=== PATIENT | female | born 1935 | race Caucasian/White ===

== ENCOUNTER 2020-02-28 18:21 | Emergency (ER) | payer MEDICARE, SELFPAY ==
[2020-02-28 18:29] VITALS: BP 121/86; PULSE 96; RESP 16; TEMP 37.2; O2SAT 94; BMI 20.1
--- NOTE | 2020-02-28 18:30 | ED.EXTPRO ---
HPI - Extremity Problem General Chief complaint: Fall Stated complaint: FALL, HIP PAIN Time Seen by Provider: 02/28/20 18:28 Related Data Allergies Allergy/AdvReac Type Severity Reaction Status Date / Time No Known Allergies Allergy Verified 02/28/20 18:33 [facility] Past Medical History Medical History (Updated 02/28/20 @ 18:32 by Eva Fisher) Asthma FH: total knee replacement High cholesterol HTN (hypertension)
--- NOTE | 2020-02-28 18:43 | ED_ITS ---
HPI - Fall General Chief Complaint: Fall Stated Complaint: FALL, HIP PAIN Time Seen by Provider: 02/28/20 18:28 Source: patient Mode of arrival: EMS Limitations: language barrier History of Present Illness HPI Narrative: Apparently patient was cleaning her house tripped and had a mechanical fall landed on her right hip since then she has been limping and pain is getting worse today no other injuries no head injuries no loss of consciousness no prior fracture of the right hip complaint: fall Onset (ago): day(s) (1) Fall from: standing Fall witnessed: no Place fall occurred: home Loss of consciousness: none Prolonged down time: no Symptoms prior to fall: none Context: tripped/slipped Location of injury - extremities: right: thigh Severity: moderate Quality: dull Associated symptoms (after fall): denies Related Data Previous Rx's Medication Instructions Recorded miscellaneous medical supply #1 ea 02/28/20 tramadol 50 mg PO Q6H PRN #20 tab 02/28/20 Allergies Allergy/AdvReac Type Severity Reaction Status Date / Time No Known Allergies Allergy Verified 02/28/20 18:33 Review of Systems Review of Systems: REVIEW OF SYSTEMS: Pertinent positives and negatives are stated above in the history. GEN: no fevers, chills, fatigue HEENT: no nasal congestion, sore throat, ear pain NEURO: no headache, dizziness, focal weakness PULM: no cough, shortness of breath CV: no chest pain, palpitations, LE edema ABD: no abdominal pain, nausea, vomiting, diarrhea : no dysuria, urgency, frequency SKIN: no rash ROS otherwise negative x 10 PMFSH Past Medical History Medical History Asthma FH: total knee replacement High cholesterol HTN (hypertension) Social History Social History Alcohol intake: never Smoked in Last 30 Days: No Use of substances other than those prescribed or required for medical reasons: No Advance Directives: No Advance Directives Information Provided: Yes Physical Exam Vital Signs: Vital Signs: Last Vital Signs Temp 99.0 F 02/28/20 18:29 Pulse 88 02/28/20 20:34 Resp 15 02/28/20 20:34 BP 110/67 02/28/20 20:34 Pulse Ox 97 02/28/20 20:34 Body Mass Index 20.1 Appearance: Alert. Oriented X3. No acute distress. Eyes: Pupils equal, round and reactive to light. ENT: Pharynx normal. Neck: Normal inspection. Neck supple. CVS: Normal heart rate and rhythm. Pulses normal. Respiratory: No respiratory distress. Breath sounds normal. Abdomen: Soft and nontender. Skin: Skin warm and dry. Normal skin color. Normal skin turgor. Extremities: No lower extremity edema. Good range of movement , no deformity of lower extremity , local tenderness right greater trochanteric area and groin Neuro: Oriented X 3. No motor deficit. No sensory deficit. Course Course Course Narrative: Patient had difficulty in walking with walker because of pain and right hip. Patient does not want to go to rehab she the family support at home has a wheelchair and walker would like to go home will give her pain medications advised to follow-up with orthopedics and report to ER if pain gets worse MDM - Fall MDM Narrative Medical decision making narrative: Patient status post mechanical fall with right hip pain x-ray showed pubic rami fracture patient has a walker at home and wheelchair does not want to go to rehab. Try to ambulate her with walker and pain management Discharge Plan Discharge Clinical Impression: Fracture of pubic ramus Patient Disposition: Home, Self-Care Instructions: Pelvic Fracture (ED) Additional Instructions: Rest use walker for ambulation take pain medication as needed. Follow-up with orthopedics if pain gets worse Prescriptions: New tramadol 50 mg tablet 50 mg PO Q6H PRN (Reason: pain) Qty: 20 RF: 0 (DME) miscellaneous medical supply Misc See Rx Instructions .ROUTE .MEDSUPPLY Qty: 1 RF: 0 Referrals: Pastor Porras MD [Physician] - 10 days Interventions: ED Discharge Assessment Last Done: 02/28/20 20:35 Discharge Date/Time: 02/28/20 20:35 Print Language: Greenlandic
--- NOTE | 2020-02-28 18:43 | XR_ITS ---
EXAMINATION: XR HIP, RIGHT CLINICAL INFORMATION: Status post fall COMPARISON: 07/23/2017 TECHNIQUE: AP view of the pelvis and AP and frog-leg lateral views of the right hip FINDINGS: There are 2 separate nondisplaced fractures of the right superior pubic ramus, one occurring near the symphyseal portion of the pubic body and the other at the high right pubic ramus near the junction with the acetabulum. There is also a nondisplaced fracture of the right inferior pubic ramus near the ischial tuberosity. Right proximal femur is intact. The femoral head is probably situated at the right hip joint. Right hip joint is relatively well-preserved. The right SI joint. Intact. No separate fractures are identified within the pelvis. Left hip joint is unremarkable. There is degenerative spondylosis in the lower lumbar spine. Soft tissues are unremarkable. XR/XR hip RT w PEL1V IMPRESSION: Nondisplaced fractures of the right superior and inferior pubic rami.
[2020-02-28] MEDS: oxyCODONE HCl Immed Release 5 MG TABLET PO (19:20)
[2020-02-28 20:22] VITALS: RESP 12
[2020-02-28] MEDS: Morphine Sulfate 4 MG/ML CARTRIDGE IM (20:22)
[2020-02-28 20:34] VITALS: BP 110/67; PULSE 88; RESP 15; O2SAT 97
--- NOTE | 2020-02-28 20:34 | PC.NURSE ---
Pt ambulates w/ assistance and walker, has walker at home. Pt daughter in law and pt decline rehab/case management.
== END 2020-02-28 20:35 | disposition home or self-care (01) ==
PROVIDERS: Emergency Provider Internal Medicine
DX: S32.501A Unspecified fracture of right pubis, initial encounter for closed fracture (principal); M25.551 Pain in right hip; I10 Essential (primary) hypertension; W01.0XXA Fall on same level from slipping, tripping and stumbling without subsequent striking against object, initial encounter; Y93.01 Activity, walking, marching and hiking; Y92.009 Unspecified place in unspecified non-institutional (private) residence as the place of occurrence of the external cause; Y99.9 Unspecified external cause status; Z79.899 Other long term (current) drug therapy
CPT/HCPCS: 73502; 96372; 99284; J2270

== ENCOUNTER 2020-03-25 10:53 | Outpatient (REF) | payer MEDICARE, SELFPAY ==
--- NOTE | 2020-03-25 10:59 | XR_ITS ---
EXAMINATION: XR PELVIS CLINICAL INFORMATION: Fracture COMPARISON: Previous x-ray February 2013 TECHNIQUE: AP view of the pelvis. FINDINGS: There are right superior and inferior pubic ramus fractures. There are 2 fractures of the superior pubic ramus, one near the pubic symphysis and one near the junction with the acetabulum. There is slight interval increase in displacement compared to February 2020 exam with the fracture fragment displaced inferiorly by 4 mm. there is a comminuted fracture of the inferior pubic ramus. There is increasing periosteal reaction seen adjacent to the inferior pubic ramus fracture. Bones of the pelvis are otherwise normal. Hip joints are normal. There are degenerative changes of the visualized lower lumbar spine. Soft tissues are unremarkable. XR/XR pelvis 1-2V IMPRESSION: Right superior and inferior pubic rami fractures. There is slight increased inferior displacement of the superior pubic ramus fracture and the inferior pubic ramus fracture appears comminuted with some periosteal reaction.
== END 2020-03-25 10:54 | disposition home or self-care (01) ==
LOC: HO.XRAY 10:53
PROVIDERS: PCP Internal Medicine; Visit Provider Physician Assistant
DX: S32.599A Other specified fracture of unspecified pubis, initial encounter for closed fracture (principal)
CPT/HCPCS: 72170; 99202

== ENCOUNTER 2020-06-12 19:19 | Emergency (ER) | payer MEDICARE, SELFPAY ==
--- NOTE | ~2020-06-12 | CT_ITS ---
EXAMINATION: CT ABDOMEN AND PELVIS WITHOUT CONTRAST CLINICAL INFORMATION: Abdominal pain and nausea. COMPARISON: CT abdomen and pelvis 04/27/2011. Lumbar spine films 02/26/2015. TECHNIQUE: Multidetector volumetric imaging was performed from the superior aspect of the liver through the pubic symphysis. Sagittal and coronal reformatted images were obtained on the technologist's workstation. This CT examination was performed using dose optimization techniques as appropriate, variously including the following: *Automated exposure control. *Adjustment of mA and/or kV according to patient size (this includes techniques or standardized protocols for targeted exams where dose is matched to indication/reason for exam; i.e. extremities or head). *Use of iterative reconstruction technique. DLP: 274 mGy-cm FINDINGS: LUNG BASES: The visualized lung bases are unremarkable. LIVER, GALLBLADDER, AND BILIARY TREE: The liver is normal in size, shape, and attenuation. Multiple hepatic cysts appear without significant change when compared to the 2012 study. No worrisome solid focal hepatic lesion or biliary ductal dilatation is present. The gallbladder is unremarkable with no evidence of radiopaque gallstones, gallbladder wall thickening, or obvious pericholecystic inflammatory changes. PANCREAS: Unremarkable. SPLEEN: Unremarkable. ADRENAL GLANDS: Unremarkable. KIDNEYS AND URETERS: The kidneys are normal in size, shape, and attenuation. No hydronephrosis, hydroureter, or calculi seen. No perinephric stranding. BLADDER: Unremarkable. GASTROINTESTINAL TRACT: A new mesentero-axial gastric volvulus is present along with a hiatal hernia which is new since the prior study. A hiatal hernia has been there for many years. There is marked dilatation of the stomach, especially the portion below the hemidiaphragm. The small and large bowel are unremarkable. ABDOMINAL WALL: No significant hernia is appreciated. LYMPH NODES: Normal. VASCULAR: Unremarkable. PELVIC VISCERA: An anteverted uterus is present. A 3.6 x 1.2 x 3.5 cm left ovarian cyst is present. In 2012, this measured 3.0 x 2.9 x 3.2 cm. No free intraperitoneal air is present. OSSEOUS STRUCTURES: Old fractures involving the right acetabulum and the right inferior pubic ramus are present. Old fractures, possibly insufficiency fractures, with sclerosis are present in the sacrum as well. The fractures are new since at least 2011. Marked degenerative changes and scoliosis present in the visualized spine. Grade 1-2 anterolisthesis of L5 upon S1. The degenerative changes and the spondylolisthesis have been present since at least 2014. CT/CT abdomen pelvis wo con IMPRESSION: 1. New mesentero-axial gastric volvulus is present along with a hiatal hernia. There is marked gastric dilatation. 2. Incidental note made of: a. Increased size of left ovarian cyst which has been present since 2011. b. Stable hepatic cysts. c. Pelvic fractures as described above, chronic. d. Severe degenerative changes and scoliosis in the spine. This critical result was discussed with Dr. Yao Allan at 10:20 PM on the day of the exam and it was ascertained that the content and urgency of the report was understood at the time of direct communication.
--- NOTE | ~2020-06-12 | XR_ITS ---
EXAMINATION: XR CHEST CLINICAL INFORMATION: Shortness of breath COMPARISON: 03/27/2019 TECHNIQUE: Frontal view of the chest was obtained. FINDINGS: Again seen is a large hiatal hernia. Otherwise, no significant abnormality is noted involving the heart, lungs, mediastinum, bony thorax or soft tissues. XR/XR chest 1V IMPRESSION: Large hiatal hernia. A cause for the acute shortness of breath is not seen.
[2020-06-12 19:39] VITALS: BP 130/70; PULSE 111; O2SAT 96
[2020-06-12 19:40] VITALS: BP 121/93; PULSE 110; RESP 17; TEMP 37; O2SAT 92; BMI 17.7
[2020-06-12] MEDS: 0.9 % Sodium Chloride 1,000 ML 999 ML IV ×2 (20:25→22:00)
[2020-06-12] MEDS: ondansetron HCL 4 MG/2 ML VIAL IVPUSH ×2 (20:25→21:59)
[2020-06-12 20:28] VITALS: BP 139/86; PULSE 92; RESP 16; O2SAT 98
[2020-06-12 20:30] LABS: MANUAL DIFF FLAG NO
[2020-06-12 20:33] VITALS: O2SAT 90
[2020-06-12 20:41] LABS: Basophils Percent Auto 0.1 % (0-2); Hematocrit 50.1 % (37-47); Hemoglobin 16.1 g/dl (12.0-16.0); Imm Gran Abs Auto 0.07 X10*3/uL (0.00-0.03); Imm Gran Pct Auto 0.5 % (0.0-0.4); Lymphocytes Absolute Auto 1.4 X10*3/uL (1.2-4.9); Lymphocytes Percent Auto 9.5 % (20-40); Mean Corpuscular HGB Conc 32.1 g/dl (31.0-35.0); Mean Corpuscular Hemoglobin 28.5 pg (27.0-33.0); Mean Corpuscular Volume 88.7 fL (80-98); Mean Platelet Volume 10.5 fL (9.4-12.3); Monocytes Absolute Auto 0.8 X10*3/uL (0.1-1.2); Monocytes Percent Auto 5.2 % (2-11); Neutrophils Absolute Auto 12.1 X10*3/uL (2.0-8.3); Neutrophils Percent Auto 84.7 % (45-73); Platelet Count 327 X10*3/uL (160-400); Red Blood Count 5.65 X10*6/uL (4.20-5.50); Red Cell Distribution Width 13.8 % (11.0-16.0); White Blood Count 14.4 X10*3/uL (4.8-10.8)
--- NOTE | 2020-06-12 21:04 | PC.NURSE ---
pt not given 2nd liter as it was only supposed to be 1l ordered.
--- NOTE | 2020-06-12 21:04 | PC.NURSE ---
patient a&o, family at bedside, classroom monitor applied, iv inserted, labs drawn, pt medicated per standing orders, will continue to monitor.
[2020-06-12 21:22] LABS: Albumin Level 5.5 g/dL (3.5-5.0); Alkaline Phosphatase 122 U/L (39-117); Anion Gap 33 (12-20); Bilirubin Direct 0.3 mg/dL (0.0-0.5); Bilirubin Total 0.7 mg/dL (0.0-1.0); Calcium 9.1 mg/dL (8.4-10.2); Carbon Dioxide 36 mmol/L (22-29); Chloride 81 mmol/L (96-108); Creatinine Clr Calc Pharmacy 12.5; Estimated Glomerular Filt Rate 19; Glucose Random 164 mg/dL (60-115); Potassium 3.3 mmol/L (3.3-5.1); Sodium 147 mmol/L (135-145)
[2020-06-12 21:23] LABS: Alanine Aminotransferase 20 U/L (0-31); Aspartate Amino Transferase 29 U/L (5-31); Lipase 97 U/L (8-78)
--- NOTE | 2020-06-12 21:23 | ED_ITS ---
HPI - General Adult General Chief complaint: Nausea/Vomiting/Diarrhea Stated complaint: N/V Time Seen by Provider: 06/12/20 21:07 Source: patient and family (Patient's son, Michael) Mode of arrival: ambulatory Limitations: language barrier (Patient speaks [place]an) History of Present Illness HPI narrative: 84-year-old female who presents emergency department for evaluation of nausea, vomiting and abdominal pain. The information comes from the patient and from the patient's son, Michael. The patient ate a [employer] sandwich Saturday night. Patient states that she felt fine until Saturday morning when she developed diffuse abdominal pain. Saturday evening, she began to vomit and has not been able to hold down any food or fluid for the last 24 hours. She states that she had a normal bowel movement yesterday morning. She states that the pain in her abdomen is a diffuse, constant, pain which is 10/10 at its worst. She cannot characterize the pain. She states that her abdomen feels distended. She states that she is feeling weak and lightheaded. This is 1st episode of this type of pain for this patient. The patient has no COVID-19 symptoms. She states that she got her 2nd vaccination of the COVID-19 vaccine 1 week prior but does not know which vaccination she received. Related Data Previous Rx's Medication Instructions Recorded miscellaneous medical supply #1 ea 02/28/20 tramadol 50 mg PO Q6H PRN #20 tab 02/28/20 Allergies Allergy/AdvReac Type Severity Reaction Status Date / Time No Known Allergies Allergy Verified 02/28/20 18:33 Review of Systems Review of Systems: Yes all other systems are reviewed and are negative [facility] Past Medical History [facility] Narrative: The patient lives alone however her son and [id number] live upstairs apartment. The runs a daycare. She denies tobacco, alcohol and drug use. Medical History (Updated 06/12/20 @ 23:13 by Suhail Martinez MD) Acute gastric volvulus Asthma FH: total knee replacement High cholesterol HTN (hypertension) Social History Social History Alcohol intake: never Smoking Status: Former smoker Use of substances other than those prescribed or required for medical reasons: No Advance Directives: No Advance Directives Information Provided: No Physical Exam Vital Signs: Vital Signs: Last Vital Signs Temp 98.0 F 06/12/20 22:16 Pulse 92 06/12/20 22:16 Resp 16 06/12/20 22:16 BP 143/80 H 06/12/20 22:16 Pulse Ox 96 06/12/20 22:16 Body Mass Index 17.7 Const: General: cooperative and in distress moderate (Secondary to pain) Nutritional Appearance: thin Orientation/consciousness: oriented to person and oriented to place Limitations: no limitations HENMT: Head: Yes normal to inspection, Yes normocephalic and Yes atraumatic Ears: external ears normal General nose exam: Normal external nose present Face and sinus: Yes normal facial exam Mouth: other (Dry mucous membrane) Throat: Yes posterior oropharynx normal Eyes: Periorbital: periorbital findings normal Eyelids: Yes eyelids normal Conjunctivae: conjunctivae normal Sclerae: sclerae normal Corneas: corneas normal Pupils: Equal, round and reactive pupils present Direct Ophthalmoscopy: normal light reflex Neck: Neck: Yes full ROM, Yes no lymphadenopathy, Yes no meningeal signs, Yes trachea midline and Yes supple Chest: Chest palpation & inspection: normal inspection of the chest and normal palpation of entire chest wall Resp: Effort & Inspection: normal respiratory effort and able to speak in co mplete sentences Auscultation: clear to auscultation bilaterally Cardio: Rate: regular rate Rhythm: regular rhythm Heart sounds: S1 normal heart sound present, S2 normal heart sound present and no murmurs GI: Inspection: Yes other (Distended) Palpation (GI): Soft to palpation, Tenderness to palpation present (GI) (Mild diffuse tenderness) in the epigastrum (Moderate), no guarding, not rigid and No hepatosplenomegaly present Auscultation: normal bowel sounds : General: Yes no CVA tenderness Back/Spine/Pelvis: Back: no CVA tenderness Cervical Spine: normal cervical lordosis Thoracic/Lumbar Spine: thoracic and lumbar spine normal to inspect ion Skin: Lesions: no lesions Rashes: no rashes Wounds: no wounds Neuro: General: oriented to person, oriented to place and no meningeal signs Cranial nerves: Yes CN's II-XII intact bilaterally and Yes Equal, round and reactive pupils present Cognition (Neuro): normal cognition Motor exam (neuro): 5/5 motor strength present throughout Extrem: General: Yes normal to inspection and Yes full ROM Psych: Appearance: well kempt Mental Status: mental status grossly normal Speech and movement: Normal speech and movement present Affect: normal affect Attitude: cooperative Thought process: Normal thought process present Thought content: Normal thought content present Course Course Course Narrative: 84-year-old female who presents to the emergency department for evaluation of nausea, vomiting, no oral intake for 24 hours and abdominal pain. Physical examination did reveal tachycardia with a pulse of 110, hypertension with a BP of 121/93, patient was afebrile and O2 saturation was 92% on room air. Her abdomen was distended and she had diffuse tenderness. I ordered a CBC, CMP, lipase, urinalysis, COVID test, chest x-ray and CT scan of the abdomen pelvis without IV contrast. 2306: Laboratory evaluation revealed that the [place] [address], H&H of 16.1 and 50.1, normal platelet count 327,000. Comprehensive metabolic panel revealed multiple abnormalities including an elevated sodium of 147, elevated BUN and creatinine of 91 and 2.41. Alk-phos was elevated 122 with normal AST and ALT. Lipase was elevated at 97. 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 I did discuss this patient's presentation with our covering surgeon who came to the emergency department and evaluated the patient and reviewed the CT scan. Given the fact that half of the volvulus was in the patient's chest cavity, he felt that the patient require a tertiary care center and that the surgical procedure was beyond the capabilities of our institution. I did contact the [facility] transfer line and discuss the patient with the on-call surgeon Dr. Shaw who also discussed the patient's presentation with our surgeon. Dr. Shaw did accept this patient as an ED to ED transfer. Toradol 30 mg IV and Zofran 4 mg IV x2. This did give her some improvement of her pain. She was also treated with normal saline IV x2 L and she was ordered to get 3rd L of lactated Ringer's IV. She was also ordered to get Zosyn 3.375 g IV. COVID-19 screen was negative. Medical Decision Making Lab Data Result diagrams: 06/12/20 20:17 06/12/20 20:17 Labs: Lab Results 06/12/20 06/12/20 06/12/20 Range/Units 20:17 20:17 22:47 WBC 14.4 H (4.8-10.8) X10*3/uL RBC 5.65 H (4.20-5.50) X10*6/uL Hgb 16.1 H (12.0-16.0) g/dl Hct 50.1 H (37-47) % MCV 88.7 (80-98) fL MCH 28.5 (27.0-33.0) pg MCHC 32.1 (31.0-35.0) g/dl RDW 13.8 (11.0-16.0) % Plt Count 327 (160-400) X10*3/uL MPV 10.5 (9.4-12.3) fL Immature Gran % (Auto) 0.5 H (0.0-0.4) % Neut % (Auto) 84.7 H (45-73) % Lymph % (Auto) 9.5 L (20-40) % [place] % (Auto) 5.2 (2-11) % Eos % (Auto) 0.0 (0-4) % Baso % (Auto) 0.1 (0-2) % Lymph # (Auto) 1.4 (1.2-4.9) X10*3/uL [place] # (Auto) 0.8 (0.1-1.2) X10*3/uL Eos # (Auto) 0.0 (0.0-0.4) X10*3/uL Baso # (Auto) 0.0 (0.0-0.2) X10*3/uL Abs Immat Gran (auto) 0.07 H (0.00-0.03) X10*3/uL Absolute Neuts (auto) 12.1 H (2.0-8.3) X10*3/uL Absolute Nucleated RBC 0.000 (0.0-0.012) X10*3/uL Nucleated RBC % (auto) 0.0 (0.0-0.2) /100WBC Sodium 147 H (135-145) mmol/L Potassium 3.3 (3.3-5.1) mmol/L Chloride 81 L (96-108) mmol/L Carbon Dioxide 36 H (22-29) mmol/L Anion Gap 33 H (12-20) BUN 91 H* (9-16) mg/dL Creatinine 2.41 H (0.5-1.4) mg/dL Estim Creat Clear Calc 12.5 Estimated GFR 19 Random Glucose 164 H (60-115) mg/dL Calcium 9.1 (8.4-10.2) mg/dL Total Bilirubin 0.7 (0.0-1.0) mg/dL Direct Bilirubin 0.3 (0.0-0.5) mg/dL AST 29 (5-31) U/L ALT 20 (0-31) U/L Alkaline Phosphatase 122 H (39-117) U/L Total Protein 10.0 H (6.5-8.0) g/dL Albumin 5.5 H (3.5-5.0) g/dL Lipase 97 H (8-78) U/L COVID-19 (JULISA) Negative (Negative) COVID-19 Clin Com See Note Critical Care Time Critical Care Time Critical Care Time: Yes Total Critical Care Time: 35 Attestation: Critical Care: The patient was critically ill with a high probability of imminent or life threatening deterioration. I spent greater than 30 minutes of discontinuous time evaluating the patient,delivering critical care at the bedside, discussing and evaluating pertinent data with consultants. Critical care time does not include time spent performing separately billable procedures or teaching. Total time spent performing critical care was 35 minutes. Discharge Plan Discharge Clinical Impression: Acute gastric volvulus, Volume depletion, Acute kidney injury, Intractable nausea and vomiting Patient Disposition: [facility] Transfer Details: ED to ED transfer to [facility] Prescriptions: No Action tramadol 50 mg tablet 50 mg PO Q6H PRN (Reason: pain) Qty: 20 RF: 0 (DME) miscellaneous medical supply Misc See Rx Instructions .ROUTE .MEDSUPPLY Qty: 1 RF: 0
[2020-06-12 21:25] LABS: Blood Urea Nitrogen 91 mg/dL (9-16)
[2020-06-12] MEDS: Ketorolac Tromethamine 30 MG/ML VIAL IVPUSH (21:59)
[2020-06-12 22:00] VITALS: BP 153/90; PULSE 104; RESP 17; TEMP 36.9; O2SAT 97
--- NOTE | 2020-06-12 22:06 | PC.NURSE ---
patient medicated per order, family at bedside, pt vitals stable, nuclear monitoring technician sinus tach, will continue to monitor.
[2020-06-12 22:16] VITALS: BP 143/80; PULSE 92; RESP 16; TEMP 36.7; O2SAT 96
--- NOTE | 2020-06-12 23:06 | PM.CNGS ---
History of Present Illness Consult details Consult date: 06/12/20 Narrative: 84F here in the ED for epigastric pain and vomitting x 48 hours. She has been unable to take anything by mouth since then. She had apparently been during the day Saturday. The son says that she seems to have been nauseous the whole time since then. She has not had any similar episodes in the past. She has had no abdominal surgeries. Review of Systems Constitutional: Constitutional: Denies chills and Denies fever(s) Cardiovascular: Cardiovascular: Denies chest pain, Denies dyspnea and Denies dyspnea on exertion Respiratory: Respiratory: Denies cough, Denies dyspnea and Denies dyspnea on exertion Gastrointestinal: Gastrointestinal: Denies hematochezia and Denies change in bowel habits Genitourinary: Genitourinary: Denies hematuria Musculoskeletal: Musculoskeletal: Denies back pain and Denies limited range of motion Neurologic: Denies focal weakness and Denies convulsions Psychiatric: Psychiatric: Denies depression and Denies mood swings [facility] Past Medical History Medical History (Updated 06/12/20 @ 23:13 by Suhail Martinez MD) Acute gastric volvulus Asthma FH: total knee replacement High cholesterol HTN (hypertension) Social History Social History Alcohol intake: never Smoking Status: Former smoker Use of substances other than those prescribed or required for medical reasons: No Advance Directives: No Advance Directives Information Provided: No Meds Allergies Allergy/AdvReac Type Severity Reaction Status Date / Time No Known Allergies Allergy Verified 02/28/20 18:33 Active Medications: Current Medications Generic Name Dose Route Start Last Admin Trade Name Jeremy PRN Reason Stop Dose Admin Lactated Ringer's 1,000 mls @ 999 mls/hr 06/12/20 22:39 Lr IV 06/12/20 23:39 .Q1H1M STA Physical Exam Vital Signs: Vital Signs: Last Vital Signs Temp 98.0 F 06/12/20 22:16 Pulse 92 06/12/20 22:16 Resp 16 06/12/20 22:16 BP 143/80 H 06/12/20 22:16 Pulse Ox 96 06/12/20 22:16 Body Mass Index 17.7 Const: Other: looks uncomfortable, Resp: Effort & Inspection: normal respiratory effort Auscultation: clear to auscultation bilaterally Cardio: Rhythm: regular rhythm GI: Other: soft, tender on the upper abdomen with some protruberance, no guarding or rebound Extrem: Right upper extremity: no edema Results Labs Result diagrams: 06/12/20 20:17 06/12/20 20:17 Labs: Abnormal lab results 06/12/20 06/12/20 Range/Units 20:17 20:17 WBC 14.4 H (4.8-10.8) X10*3/uL RBC 5.65 H (4.20-5.50) X10*6/uL Hgb 16.1 H (12.0-16.0) g/dl Hct 50.1 H (37-47) % Immature Gran % (Auto) 0.5 H (0.0-0.4) % Neut % (Auto) 84.7 H (45-73) % Lymph % (Auto) 9.5 L (20-40) % Abs Immat Gran (auto) 0.07 H (0.00-0.03) X10*3/uL Absolute Neuts (auto) 12.1 H (2.0-8.3) X10*3/uL Sodium 147 H (135-145) mmol/L Chloride 81 L (96-108) mmol/L Carbon Dioxide 36 H (22-29) mmol/L Anion Gap 33 H (12-20) BUN 91 H* (9-16) mg/dL Creatinine 2.41 H (0.5-1.4) mg/dL Random Glucose 164 H (60-115) mg/dL Alkaline Phosphatase 122 H (39-117) U/L Total Protein 10.0 H (6.5-8.0) g/dL Albumin 5.5 H (3.5-5.0) g/dL Lipase 97 H (8-78) U/L Short CBC 06/12/20 Range/Units 20:17 WBC 14.4 H (4.8-10.8) X10*3/uL Hgb 16.1 H (12.0-16.0) g/dl Hct 50.1 H (37-47) % Plt Count 327 (160-400) X10*3/uL BMP 06/12/20 20:17 Sodium 147 H Potassium 3.3 Chloride 81 L Carbon Dioxide 36 H BUN 91 H* Creatinine 2.41 H Calcium 9.1 Liver Function 06/12/20 Range/Units 20:17 Total Bilirubin 0.7 (0.0-1.0) mg/dL Direct Bilirubin 0.3 (0.0-0.5) mg/dL AST 29 (5-31) U/L ALT 20 (0-31) U/L Alkaline Phosphatase 122 H (39-117) U/L Albumin 5.5 H (3.5-5.0) g/dL All other labs normal. Imaging Abdomen CT scan report/results: image reviewed Assessment and Plan (1) Acute gastric volvulus: Status: Acute She presents with upper abdominal pain, vomitting, severe nausea since x 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 The stomach is markedly distended although part of this distally including the antrum appears to have herniated into the chest causing the massive proximal distension. I explained to the patient's family - including the son and the daughter that laparotomy, reduction of the herniated stomach from the chest is indicated urgently in view of the risk of strangulation. However, in view of the possible complexity of the procedure with the chance of requiring gastrectomy in case there is nonviable stomach wall, I have recommended that the patient be transferred to a tertiary hospital. I discussed the above plan with the family and they are understanding of this. I was able to discuss the above with the surgeon para professional in [facility] as well. The patient's lab values suggest volume depletion, so aggressive hydration is also indicated.
[2020-06-12 23:19] LABS: COVID-19 Test Negative (Negative)
[2020-06-12] MEDS: Lactated Ringers 1,000 ML 999 ML IV (23:37)
[2020-06-12] MEDS: Piperacillin Sodium/Tazobactam 3.375 GM in 0.9 % Sodium Chloride 50 ML IV (23:37)
== END 2020-06-13 00:40 | disposition short-term general hospital (02) ==
PROVIDERS: Emergency Provider Emergency Medicine Emergency Medical Services; PCP Internal Medicine
DX: K31.89 Other diseases of stomach and duodenum (principal); E86.9 Volume depletion, unspecified; R11.2 Nausea with vomiting, unspecified; R00.0 Tachycardia, unspecified; Z20.822 Contact with and (suspected) exposure to COVID-19; K44.9 Diaphragmatic hernia without obstruction or gangrene; N83.202 Unspecified ovarian cyst, left side; K76.89 Other specified diseases of liver
CPT/HCPCS: 36415; 71045; 74176; 80048; 80076; 83690; 85025; 87635; 96361; 96365; 96374; 96375; 96376; 99282; 99283; 99285; 99291; J1885; J2405; J2543

== ENCOUNTER 2021-03-17 09:37 | Outpatient (REF) | payer MEDICARE, SELFPAY ==
--- NOTE | ~2021-03-17 | XR_ITS ---
EXAMINATION: XR HIP, RIGHT CLINICAL INFORMATION: Right hip pain COMPARISON: 03/25/2020 TECHNIQUE: Two views of the right hip. Frontal view of the pelvis. FINDINGS: Healed right-sided superior and inferior pubic rami fractures are noted. There is no acute fracture or dislocation. The hips are well aligned. Mild degenerative changes with joint space narrowing and sclerosis. The visualized bowel gas pattern is nonobstructive. XR/XR hip RT w PEL1V IMPRESSION: Mild degenerative changes of the hips. Healed right-sided pubic rami fractures.
== END 2021-03-17 09:38 | disposition home or self-care (01) ==
LOC: HO.LAB 09:37
PROVIDERS: PCP Internal Medicine; Visit Provider Internal Medicine
DX: M25.551 Pain in right hip (principal); Z87.81 Personal history of (healed) traumatic fracture
CPT/HCPCS: 73502

== ENCOUNTER 2022-10-10 11:40 | Outpatient (REF) | payer MEDICARE, SELFPAY | END 2022-10-10 11:41 | disposition home or self-care (01) | LOC: HO.HOSX 11:40 | PROVIDERS: Visit Provider Physician Assistant | DX: Z13.89 Encounter for screening for other disorder (principal) ==

== ENCOUNTER 2023-02-27 08:45 | Outpatient (REF) | payer MEDICARE, SELFPAY ==
[2023-02-27 11:54] LABS: Cholesterol 157 mg/dL (<200); HDL Cholesterol 47 mg/dL (>40); LDL Cholesterol Calculated 54 mg/dL (<100); Triglycerides 282 mg/dL (<150)
[2023-02-27 11:55] LABS: Alanine Aminotransferase 15 U/L (0-31); Albumin Level 4.1 g/dL (3.5-5.0); Alkaline Phosphatase 79 U/L (39-117); Anion Gap 13 (12-20); Aspartate Amino Transferase 17 U/L (5-31); Bilirubin Direct 0.1 mg/dL (0.0-0.5); Bilirubin Total 0.3 mg/dL (0.0-1.0); Blood Urea Nitrogen 13 mg/dL (9-16); Calcium 9.2 mg/dL (8.4-10.2); Carbon Dioxide 25 mmol/L (22-29); Chloride 107 mmol/L (96-108); Estimated Glomerular Filt Rate > 60; Glucose Random 163 mg/dL (60-115); Potassium 3.6 mmol/L (3.3-5.1); Sodium 141 mmol/L (135-145); Total Protein 7.9 g/dL (6.5-8.0)
[2023-02-27 11:57] LABS: Reflex LDLD? No
== END 2023-02-27 08:46 | disposition home or self-care (01) ==
LOC: HO.HHCL 08:45
PROVIDERS: Visit Provider Internal Medicine
DX: E78.2 Mixed hyperlipidemia (principal); I10 Essential (primary) hypertension
CPT/HCPCS: 36415; 80048; 80061; 80076

== ENCOUNTER 2024-08-14 09:59 | Outpatient (REF) | payer MEDICARE, SELFPAY ==
[2024-08-14 11:24] LABS: Appearance Urine Turbid; Color Urine Yellow; Glucose Urine UA Negative (Negative); Leukocyte Esterase Urine Moderate (2+) (Negative); Nitrite Urine Positive (Negative); PH 5.5 (5.0-9.0); UMIC TRIGGER UACC YES; Urine Blood Trace (Negative); Urine Ketones Negative (Negative); Urine Protein 30 (1+) mg/dL (Neg-Trace)
[2024-08-14 11:30] LABS: MANUAL DIFF FLAG NO
[2024-08-14 11:36] LABS: Bacteria Urine 4+ (None Seen); Hyaline Casts Urine 0-2 /LPF (0-2); RBC Urine 0-2 /HPF (0-2); UACC Culture Trigger YES; WBC Urine >50 /HPF (0-5)
[2024-08-14 11:52] LABS: Basophils Percent Auto 0.5 % (0-2); Eosinophils Absolute Auto 0.1 X10*3/uL (0.0-0.4); Eosinophils Percent Auto 0.8 % (0-4); Hematocrit 41.9 % (37.0-47.0); Hemoglobin 13.4 g/dl (12.0-16.0); Imm Gran Abs Auto 0.02 X10*3/uL (0.00-0.03); Imm Gran Pct Auto 0.3 % (0.0-0.4); Lymphocytes Absolute Auto 1.8 X10*3/uL (1.2-4.9); Lymphocytes Percent Auto 27.7 % (20-40); Mean Corpuscular Volume 87.7 fL (80.0-98.0); Mean Platelet Volume 10.8 fL (9.4-12.3); Monocytes Absolute Auto 0.4 X10*3/uL (0.1-1.2); Neutrophils Absolute Auto 4.2 x10*3/uL (2.0-8.3); Neutrophils Percent Auto 64.7 % (45-73); Platelet Count 242 X10*3/uL (160-400); Red Blood Count 4.78 X10*6/uL (4.20-5.50); Red Cell Distribution Width 13.6 % (11.0-16.0); White Blood Count 6.5 X10*3/uL (4.8-10.8)
[2024-08-14 12:56] LABS: TSH reflex Free T4 3.07 uIU/mL (0.32-4.0)
[2024-08-14 13:01] LABS: Folate 11.8 ng/mL (> or = 4.0); Vitamin B12 574 pg/mL (200-900)
[2024-08-14 13:03] LABS: Anion Gap 13 (12-20); Syphilis Screen Nonreactive (Nonreactive)
[2024-08-14 13:08] LABS: Alanine Aminotransferase 23 U/L (0-31); Albumin Level 4.7 g/dL (3.5-5.0); Alkaline Phosphatase 96 U/L (39-117); Aspartate Amino Transferase 25 U/L (5-31); Bilirubin Total 0.4 mg/dL (0.0-1.0); Blood Urea Nitrogen 12 mg/dL (9-16); Carbon Dioxide 28 mmol/L (22-29); Chloride 105 mmol/L (96-108); Cholesterol 253 mg/dL (<200); Estimated Glomerular Filt Rate > 60; Glucose Random 143 mg/dL (60-115); HDL Cholesterol 53 mg/dL (>40); Potassium 4.1 mmol/L (3.3-5.1); Sodium 142 mmol/L (135-145); Total Protein 8.8 g/dL (6.5-8.0); Triglycerides 444 mg/dL (<150)
== END 2024-08-14 10:00 | disposition home or self-care (01) ==
LOC: HO.HHCL 09:59
PROVIDERS: Visit Provider Internal Medicine
DX: R26.2 Difficulty in walking, not elsewhere classified (principal); I10 Essential (primary) hypertension; E78.2 Mixed hyperlipidemia; R68.89 Other general symptoms and signs; R41.89 Other symptoms and signs involving cognitive functions and awareness; R26.0 Ataxic gait; R32 Unspecified urinary incontinence
CPT/HCPCS: 36415; 80053; 80061; 81001; 82607; 82746; 84443; 85025; 86780; 87086

== ENCOUNTER 2024-08-21 18:56 | Outpatient (REF) | payer MEDICARE, SELFPAY ==
--- NOTE | ~2024-08-21 | MR_ITS ---
EXAMINATION: MR BRAIN WITHOUT CONTRAST CLINICAL INFORMATION: Changes in short-term memory. COMPARISON: CT brain 06/08/2018 TECHNIQUE: MRI of the brain was obtained using routine sequences without contrast. FINDINGS: There is no restricted diffusion seen to suspect any acute ischemic changes. No susceptibility artifact either to suggest any acute or chronic hemorrhagic products. There are scattered T2 FLAIR foci in the deep white matter of both cerebral hemispheres without mass effect or edema. These are most suggestive of chronic small vessel ischemic changes. The lateral ventricles are symmetrical in size and configuration but mildly enlarged. Visualized bilateral cerebral hemispheres, mid and hind brain appears unremarkable. There is normal flow-void signal seen in major cerebral vasculature. Bilateral paranasal sinuses and mastoid air cells are well-aerated with a small polyp or retention cyst left maxillary sinus and minimal mucoperiosteal thickening right ethmoid sinus. The optic globes, optic nerves and the periorbital soft tissues are normal. Calvarial bone marrow signal and the scalp soft tissues are normal. Signal MR/MR head/brain wo con IMPRESSION: Diffuse T2 FLAIR foci in deep white matter of both cerebral hemispheres suggestive of chronic small ischemic changes. No acute infarct, bleed or masses seen. Electronically signed by: Felipe Steele MD 08/24/2024 07:19 AM EDT
== END 2024-08-21 18:57 | disposition home or self-care (01) ==
LOC: HO.MRI 18:56
PROVIDERS: PCP Internal Medicine; Visit Provider Internal Medicine
DX: R15.9 Full incontinence of feces (principal); R26.0 Ataxic gait; R68.89 Other general symptoms and signs
CPT/HCPCS: 70551

== ENCOUNTER → 2024-08-21 19:02 | Outpatient (BNV) | payer MEDICARE, SELFPAY | PROVIDERS: PCP Internal Medicine; Visit Provider Radiology Diagnostic Radiology | DX: R90.82 White matter disease, unspecified (principal) | CPT/HCPCS: 70551 ==